=== PATIENT | male | born 1960 | race Caucasian/White ===

== ENCOUNTER → 2020-08-01 07:50 | Outpatient (CLI) | payer OTHER, SELFPAY ==
--- NOTE | ~2020-08-01 | XR_ITS ---
EXAMINATION: XR abdomen obstructive series DATE: 08/01/2020 08:37 INDICATION: Chronic constipation TECHNIQUE: Supine and upright views of the abdomen. FINDINGS: No prior studies for comparison. The visualized lung parenchyma is normal.. There is a nonobstructive bowel gas pattern. Gas and stool are seen throughout the colon to the level of the rectum. There is no free air. There are surgical changes in the hips. 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 IMPRESSION: 1. No acute abdominal abnormality. Reviewed, dictated and finalized at location B.
--- NOTE | ~2020-08-01 | US_ITS ---
US soft tissue groin RT 08/01/2020 08:19 Indication: Injury to the abdomen and groin with burning sensation with pain. No palpable lump. Procedure: High-resolution ultrasound of the right groin Comparison: No prior studies for comparison. Findings: No evidence for hernia or disruption of the muscular layer. There is a small lymph node wit h normal fatty hilum measuring 1.8 cm. Impression: 1: Unremarkable limited ultrasound of the right groin without evidence for hernia. Reviewed, dictated and finalized at location B. Impression: 1: Unremarkable limited ultrasound of the right groin without evidence for erin ia.
== END ==
PROVIDERS: Visit Provider Nurse Practitioner Family
DX: S39.91XA Unspecified injury of abdomen, initial encounter (principal); K59.09 Other constipation; X58.XXXA Exposure to other specified factors, initial encounter
CPT/HCPCS: 74019; 76882

== ENCOUNTER 2024-04-26 12:33 | Emergency (ER) | payer OTHER, SELFPAY ==
[2024-04-26 12:44] VITALS: BP 148/85; PULSE 74; RESP 16; TEMP 37.6; O2SAT 98
--- NOTE | 2024-04-26 12:53 | ED.EAR ---
HPI - Ear Problem General Chief complaint: Ear Stated complaint: Ears Irritation Time Seen by Provider: 04/26/24 12:53 Source: patient, RN notes reviewed and old records reviewed Mode of arrival: ambulatory Limitations: no limitations History of Present Illness HPI Narrative: Patient presents with complaints of decreased hearing bilaterally. He reports that he has been wearing ear plugs on a job site and feels as though he may have been pushing cerumen farther into his ear canals. He tried to use Debrox last night and states that he does not feel it helped. He denies any injury or trauma. Denies any other symptoms or complaints Related Data Home Medications ?Medication ?Instructions ?Recorded ?Confirmed ?Last Taken ?Type cyclobenzaprine 5 mg tablet mg 04/26/24 Unknown History finasteride 5 mg tablet mg 04/26/24 Unknown History meloxicam 15 mg tablet mg 04/26/24 Unknown History tamsulosin 0.4 mg capsule mg PO 04/26/24 Unknown History valsartan 320 tablet 04/26/24 Unknown History mg-hydrochlorothiazide 25 mg tablet verapamil 240 mg tablet,extended mg PO 04/26/24 Unknown History release Allergies Allergy/AdvReac Type Severity Reaction Status Date / Time No Known Allergies Allergy Mild Verified 04/26/24 12:39 Review of Systems Review of Systems: All systems reviewed & are unremarkable except as noted in HPI and below Constitutional: Constitutional: Reports no additional constitutional complaints ENT: Reports system reviewed and no additional complaints, except as documented and Reports hearing loss Cardiovascular: Cardiovascular: Reports no additional cardiovascular complaints Respiratory: Respiratory: Reports no additional respiratory complaints Gastrointestinal: Gastrointestinal: Reports no additional gastrointestinal complaints [facility] [place] Family History Family History Father Family history of diabetes mellitus in first degree relative Mother Family history of heart disease in male family member before age 55 Social History Social History Smoking status: Never smoker Alcohol intake: current Comments At the time of my signature, I reviewed and agree with the nursing past medical, surgical, social, and family history. There is no relevant family history pertinent to the patient complaint. Exam Const: General: cooperative, no acute distress, alert and awake Orientation/consciousness: oriented to person, oriented to place and oriented to time HENMT: Head: normal to inspection Ears: Abnormal EAC present cerumen impaction bilateral Resp: Effort & Inspection: normal respiratory effort and able to speak in complete sentences Auscultation: clear to auscultation bilaterally, no crackles, no rales, no rhonchi and no wheezes Cardio: Palpation: normal PMI Rate: regular rate Rhythm: regular rhythm Heart sounds: S1 normal heart sound present and S2 normal heart sound present Neuro: General: oriented to person, oriented to place and oriented to time Cranial nerves: Yes CN's II-XII intact bilaterally Psych: Appearance: grossly normal Thought process: Normal thought process present Insight: Good insight present (Psych) Judgement: Good judgement present (Psych) Course Course Level of Care: Express Care Visit Vital Signs Vital signs: Vital Signs Temperature 99.7 F H 04/26/24 12:44 Pulse Rate 74 04/26/24 12:44 Respiratory Rate 16 04/26/24 12:44 Blood Pressure 148/85 H 04/26/24 12:44 Pulse Oximetry 98 04/26/24 12:44 Oxygen Delivery Room Air 04/26/24 12:44 Temperature 99.7 F H 04/26/24 12:44 Pulse Rate 74 04/26/24 12:44 Respiratory Rate 16 04/26/24 12:44 Blood Pressure 148/85 H 04/26/24 12:44 Pulse Oximetry 98 04/26/24 12:44 Oxygen Delivery Room Air 04/26/24 12:44 Reviewed Procedures Ear Wax Removal Both Ears: Ear Wax Removal Date: 04/26/24 Ear Wax Removal Time: 12:55 Cerumenolytic Used: 5-10% Sodium Bicarb solution Results: Re-examined: cerumen removed completely TM Examination: TM(s) intact, normal appearance Ear Canal Exam: atraumatic Patient Tolerated Procedure: well Complications: no problems Technique: ear canal irrigated and ear canal curetted Medical Decision Making MDM Narrative Medical decision making narrative: Discharge instructions reviewed with patient, as well as provided in writing per nursing staff. The instructions also include specific and strict return/GO TO THE ER as well as f/u information. All questions have been answered, and the patient deny any further questions with discharge and discharge plan. Some parts of this dictation were generated by voice recognition software and may contain typographical and/or grammatical inaccuracies. Vital Signs Vital Signs: Vital Signs Temperature 99.7 F H 04/26/24 12:44 Pulse Rate 74 04/26/24 12:44 Respiratory Rate 16 04/26/24 12:44 Blood Pressure 148/85 H 04/26/24 12:44 Pulse Oximetry 98 04/26/24 12:44 Oxygen Delivery Room Air 04/26/24 12:44 Temperature 99.7 F H 04/26/24 12:44 Pulse Rate 74 04/26/24 12:44 Respiratory Rate 16 04/26/24 12:44 Blood Pressure 148/85 H 04/26/24 12:44 Pulse Oximetry 98 04/26/24 12:44 Oxygen Delivery Room Air 04/26/24 12:44 reviewed Lab Data Lab results reviewed: Yes I reviewed the patient's lab results. Lab results narrative: reviewed Discharge Plan Discharge Clinical Impression: Bilateral impacted cerumen Patient Disposition: Home, Self-Care Condition: Stable Instructions: Antibiotic Form, Earache (ED) Patient Language: Icelandic Prescriptions: No Action meloxicam 15 mg tablet tamsulosin 0.4 mg capsule PO verapamil 240 mg tablet extended release PO finasteride 5 mg tablet cyclobenzaprine 5 mg tablet valsartan-hydrochlorothiazide 320-25 mg tablet Follow-up/Referrals: PHYSICIAN,[employer] MACHINE OPERATOR [Primary Care Provider] - Time of Disposition: 13:34
== END 2024-04-26 13:35 | disposition home or self-care (01) ==
PROVIDERS: Emergency Provider Nurse Practitioner Family
DX: H61.23 Impacted cerumen, bilateral (principal); I10 Essential (primary) hypertension; E78.00 Pure hypercholesterolemia, unspecified; N40.0 Benign prostatic hyperplasia without lower urinary tract symptoms; M19.90 Unspecified osteoarthritis, unspecified site
CPT/HCPCS: 69210; 99212; G0463